=== PATIENT | male | born 1990 | race Caucasian/White ===

== ENCOUNTER 2020-09-23 01:28 | Emergency (ER) | payer OTHER ==
[2020-09-23] MEDS ORDERED: MAG HYDROX/AL HYDROX/SIMETH 30 ML UNIT-DOSE CUP PO ONE (01:50)
[2020-09-23] MEDS ORDERED: morphine CARPU-JECT 4 MG/1 ML DISP.SYRIN IVPUSH ONE (01:50)
[2020-09-23] MEDS ORDERED: FAMOTIDINE 20 MG/50 ML IVPB 20 MG/50 ML MG IVPB ONE ×2 (01:50→02:24)
[2020-09-23 01:58] VITALS: BMI 28.1
[2020-09-23] MEDS ORDERED: morphine SULFATE 4 MG/ML VIAL ONE (02:24)
[2020-09-23] MEDS ORDERED: MAG HYDROX/AL HYDROX/SIMETH 30 ML UNIT-DOSE CUP ONE (02:24)
[2020-09-23 02:40] LABS: BASO % 0.8 % (0-2.0); EOS % 1.9 % (0-4.5); HEMATOCRIT 47.6 % (35.4-49); HEMOGLOBIN 16.2 GM/dL (11.7-16.9); LYMPH % 41.2 % (8-40); MCH 32.9 pg (25.7-33.7); MCHC 33.9 g/dl (32.0-35.9); MEAN CELL VOLUME 96.9 fl (80-96); MEAN PLT VOLUME 9.2 fl (7.5-11.1); MONO % 10.3 % (3.8-10.2); NEUT % 45.8 % (42.8-82.8); PLATELET COUNT 233 K/MM3 (134-434); RBC 4.92 M/mm3 (4.00-5.60); RDW 13.2 % (11.9-15.9); WHITE BLOOD COUNT 6.3 K/mm3 (4.0-10.0)
[2020-09-23 02:45] LABS: INR 1.03 (0.83-1.09); PROTHROMBIN TIME (PATIENT) 12.6 SEC (9.7-13.0)
[2020-09-23 02:51] LABS: POTASSIUM 4.2 mmol/L (3.5-5.1)
[2020-09-23 02:53] LABS: CALCIUM 8.3 mg/dL (8.5-10.1)
[2020-09-23 02:54] LABS: BLOOD UREA NITROGEN 8.4 mg/dL (7-18)
[2020-09-23 02:57] LABS: CREATININE 1.1 mg/dL (0.55-1.3)
[2020-09-23 02:59] LABS: BILIRUBIN,TOTAL 0.4 mg/dL (0.2-1); TOT PROT 7.7 g/dl (6.4-8.2)
[2020-09-23 06:36] VITALS: BP 102/60; PULSE 61; TEMP 97.7
== END 2020-09-23 06:10 | disposition home or self-care (01) ==
LOC: JER 01:28
PROC: 3E033NZ Introduction of Analgesics, Hypnotics, Sedatives into Peripheral Vein, Percutaneous Approach (ICD-10-PCS; principal; 2020-09-23)
PROC: 3E033GC Introduction of Other Therapeutic Substance into Peripheral Vein, Percutaneous Approach (ICD-10-PCS; 2020-09-23)
DX: K29.20 Alcoholic gastritis without bleeding (principal)
CPT/HCPCS: 36415; 70450-TC; 74177-TC; 76705-TC; 80053; 80307; 82550; 82553; 83605; 83690; 84484; 85025; 85610; 86850; 86900; 86901; 93005; 93010; 99285-25